=== PATIENT | female | born 2000 | race Hispanic/Latino ===

== ENCOUNTER 2019-10-30 06:30 | Observation (INO) | payer SELFPAY ==
[~2019-10-30] VITALS: Ht 157.5 cm; Wt 83.1 kg
[2019-10-30] MEDS ORDERED: SODIUM CHLORIDE 0.9% 1000ML 1,000 ML IV STA (06:33)
[2019-10-30] MEDS ORDERED: ONDANSETRON HCL INJ 2MG/ML 2ML 2 MG/ML VIAL IV ONE (06:33)
--- NOTE | 2019-10-30 06:44 | Emergency Department Note ---
History of Present Illnes History of Present Illness Chief Complaint: Abdominal Complaints History of Present Illness This is a 19 year old female arrived to the ED with RUQ pain for several days, has h/o gall stones. Chief Complaint Comment 19 Y/O FEMALE PT AAOX3 PRESENTS TO THE ER C/O RUQ ABD PAIN AND N/V ONSET AROUND 0300 THIS AM; REPORTS HX OF GALLSTONES; PT STATES SHE ATE MEATBALLS, HOT CHIPS AND ICE CREAM FOR DINNER; PT STATES SHE WAS AT [facility] LAST YEAR FOR SAME PROBLEMS BUT NONE OF THE HOSPITALS WOULD TAKE GALLBLADDER OUT; PT VOMITING IN TRIAGE; V/S/S; 20G IV CATH PLACED IN LT AC; BLOOD OBTAINED FOR ANALYSIS. Historian: Patient Arrival Mode: Car Onset (how long ago): day(s) Radiation: Reports back Severity: mild Duration (how long): day(s) Chronicity: recurrent Context: Reports recent illness Relieving factors: none Past Medical/Family History Physician Review I have reviewed the patient's past medical and family history. Any updates have been documented here. Past Medical History Recent Fever: No Clinical Suspicion of Infectio: No New/Unexplained Change in Ment: No Past Medical History: Asthma Past Surgical History: None Social History Smoking Cessation: Never Smoker Counseling Performed: No Review of Systems Review of Systems Constitutional: Reports no symptoms EENTM: Reports no symptoms Cardiovascular: Reports no symptoms Respiratory: Reports no symptoms Gastrointestinal: Reports as per HPI, Reports abdominal pain Genitourinary: Reports no symptoms Musculoskeletal: Reports no symptoms Integumentary: Reports no symptoms Neurological: Reports no symptoms Psychological: Reports no symptoms Endocrine: Reports no symptoms Hematological/Lymphatic: Reports no symptoms Physical Exam Related Data Allergies: Coded Allergies: No Known Allergies (Unverified , 10/30/19) Triage Vital Signs Vital Signs Date Time Temp Pulse Resp B/P (MAP) Pulse Ox O2 Delivery O2 Flow Rate FiO2 10/30/19 06:35 98.5 70 20 141/91 100 Room Air Vital signs reviewed: Yes Physical Exam CONSTITUTIONAL Constitutional: Present well-developed, Present well-nourished HENT HENT: Present normocephalic, Present atraumatic, Present oropharynx clear/moist, Present nose normal HENT L/R: Present left ext ear normal, Present right ext ear normal EYES Eyes: Reports PERRL, Reports conjunctivae normal NECK Neck: Present ROM normal PULMONARY Pulmonary: Present effort normal, Present breath sounds normal CARDIOVASCULAR Cardiovascular: Present regular rhythm, Present heart sounds normal, Present capillary refill normal, Present normal rate GASTROINTESTINAL Abdominal: Present soft, Present bowel sounds normal, Present tender, Present other (+aranda's sign ) GENITOURINARY Genitourinary: Present exam deferred SKIN Skin: Present warm, Present dry MUSCULOSKELETAL Musculoskeletal: Present ROM normal NEUROLOGICAL Neurological: Present alert, Present oriented x 3, Present no gross motor or sensory deficits PSYCHOLOGICAL Psychological: Present mood/affect normal, Present judgement normal Results Laboratory Lab results reviewed: Yes Laboratory comments Laboratory Tests Test 10/30/19 06:41 White Blood Count 15.02 x10e3/uL (4.8-10.8) Red Blood Count 4.84 x10e6/uL (3.6-5.1) Hemoglobin 14.0 g/dL (12.0-16.0) Hematocrit 42.5 % (34.2-44.1) Mean Corpuscular Volume 87.8 fL (81-99) Mean Corpuscular Hemoglobin 28.9 pg (28-32) Mean Corpuscular Hemoglobin Concent 32.9 g/dL (31-35) Red Cell Distribution Width 13.5 % (11.7-14.4) Platelet Count 376 x10e3/uL (140-360) Neutrophils (%) (Auto) 75.3 % (38.7-80.0) Lymphocytes (%) (Auto) 17.8 % (18.0-39.1) Monocytes (%) (Auto) 5.7 % (4.4-11.3) Eosinophils (%) (Auto) 0.4 % (0.0-6.0) Basophils (%) (Auto) 0.3 % (0.0-1.0) Neutrophils # (Auto) 11.3 (2.1-6.9) Lymphocytes # (Auto) 2.7 (1.0-3.2) Monocytes # (Auto) 0.9 (0.2-0.8) Eosinophils # (Auto) 0.1 (0.0-0.4) Basophils # (Auto) 0.1 (0.0-0.1) Absolute Immature Granulocyte (auto 0.07 x10e3/uL (0-0.1) Urine Color Yellow (YELLOW) Urine Clarity Clear (CLEAR) Urine pH 8.5 (5 - 7) Urine Specific [employer] 1.015 (1.010-1.025) Urine Protein Negative (NEGATIVE) Urine Glucose (UA) Negative (NEGATIVE) Urine Ketones 1+ (NEGATIVE) Urine Blood Trace (NEGATIVE) Urine Nitrite Negative (NEGATIVE) Urine Bilirubin Negative (NEGATIVE) Urine Urobilinogen 0.2 mg/dL (0.2 - 1) Urine Leukocyte Esterase Negative (NEGATIVE) Urine RBC 0-5 /HPF (0-5) Urine WBC 6-10 /HPF (0-5) Urine Epithelial Cells Rare /LPF (NONE) Urine Bacteria Rare /HPF (NONE) Sodium Level 137 mmol/L (136-145) Potassium Level 4.2 mmol/L (3.5-5.1) Chloride Level 105 mmol/L (98-107) Carbon Dioxide Level 17 mmol/L (22-29) Anion Gap 19.2 mmol/L (8-16) Blood Urea Nitrogen 8 mg/dL (7-26) Creatinine 0.75 mg/dL (0.57-1.11) Estimat Glomerular Filtration Rate > 60 ML/MIN (60-) BUN/Creatinine Ratio 11 (6-25) Glucose Level 165 mg/dL (74-118) Calcium Level 9.6 mg/dL (8.4-10.2) Total Bilirubin 0.2 mg/dL (0.2-1.2) Aspartate Amino Transf (AST/SGOT) 26 IU/L (5-34) Alanine Aminotransferase (ALT/SGPT) 28 IU/L (0-55) Alkaline Phosphatase 65 IU/L (40-150) Total Protein 8.5 g/dL (6.5-8.1) Albumin 4.7 g/dL (3.5-5.0) Globulin 3.8 g/dL (2.3-3.5) Albumin/Globulin Ratio 1.2 (0.8-2.0) Lipase 8 U/L (8-78) Human Chorionic Gonadotropin, Qual Negative (NEGATIVE) Imaging Imaging results reviewed: Yes Impressions IMPRESSION: There is mild inflammatory change in the liver immediately adjacent to the gallbladder. While this is indeterminate, it could be due to acute cholecystitis in the appropriate clinical setting. If further imaging evaluation is necessary, consider HIDA. The findings were discussed with Dr. Genao on 10/30/2019 at 8:34 AM. Signed by: Emmett Hernandez JR, MD on 10/30/2019 8:35 AM Assessment & Plan Medical Decision Making MDM 19 yo F arrived to the ED with RUQ Abdominal pain +Aranda's sign on exam. CT AP c/w acute abdulaziz Dr. Diana Escalante informed Assessment & Plan Final Impression: (1) Acute cholecystitis Depart Disposition: ADMITTED Last Vital Signs Date Time Temp Pulse Resp B/P (MAP) Pulse Ox O2 Delivery O2 Flow Rate FiO2 10/30/19 06:35 98.5 70 20 141/91 100 Room Air Medications in the ED Sodium Chloride 1,000 ml @ 0 mls/hr Q0M STAT IV ; Start 10/30/19 at 06:33; Stop 10/30/19 at 06:36; Status DC Ondansetron HCl 4 mg NOW STAT IV ; Start 10/30/19 at 06:33; Stop 10/30/19 at 06:34; Status UNV Morphine Sulfate 4 mg ONCE PRN IV SEVERE PAIN (7-10); Start 10/30/19 at 06:45; Stop 11/06/19 at 06:44; Status UNV KHADIJAH GENAO, DO Oct 30, 2019 06:44
[2019-10-30] MEDS ORDERED: MORPHINE SULFATE INJ 4 MG/ML INJ 1ML IV PRN (06:45)
[2019-10-30] MEDS ORDERED: ONDANSETRON HCL INJ 2MG/ML 2ML 2 MG/ML VIAL ONE (06:54)
[2019-10-30 07:02] LABS: BASOPHILS # (AUTO) 0.1 (0.0-0.1); BASOPHILS % 0.3 % (0.0-1.0); EOSINOPHILS # (AUTO) 0.1 (0.0-0.4); EOSINOPHILS % 0.4 % (0.0-6.0); HEMATOCRIT 42.5 % (34.2-44.1); LYMPHOCYTES # (AUTO) 2.7 (1.0-3.2); LYMPHOCYTES % 17.8 % (18.0-39.1); MEAN CORPUSCULAR HEMOGLOBIN 28.9 pg (28-32); MEAN CORPUSCULAR HGB CONC 32.9 g/dL (31-35); MEAN CORPUSCULAR VOLUME 87.8 fL (81-99); MONOCYTES # (AUTO) 0.9 (0.2-0.8); MONOCYTES % 5.7 % (4.4-11.3); NEUTROPHILS # (AUTO) 11.3 (2.1-6.9); NEUTROPHILS % 75.3 % (38.7-80.0); PLATELET COUNT 376 x10e3/uL (140-360); RED BLOOD COUNT 4.84 x10e6/uL (3.6-5.1); RED CELL DISTRIBUTION WIDTH 13.5 % (11.7-14.4)
--- NOTE | 2019-10-30 07:05 | NUR ---
Report to LELAND Sanford
[2019-10-30] MEDS ORDERED: KETOROLAC TROMETHAMINE 30 MG/ML VIAL IV ONE (07:12)
[2019-10-30 07:18] LABS: ALANINE AMINOTRANSFERASE 28 IU/L (0-55); ALBUMIN 4.7 g/dL (3.5-5.0); ALBUMIN/GLOBULIN RATIO 1.2 (0.8-2.0); ALKALINE PHOSPHATASE 65 IU/L (40-150); ANION GAP 19.2 mmol/L (8-16); BLOOD UREA NITROGEN 8 mg/dL (7-26); BUN/CREATININE RATIO 11 (6-25); CALCIUM 9.6 mg/dL (8.4-10.2); CARBON DIOXIDE 17 mmol/L (22-29); CHLORIDE 105 mmol/L (98-107); CREATININE, SERUM 0.75 mg/dL (0.57-1.11); EST GLOMERULAR FILTRATION RATE > 60 ML/MIN (60-); GLUCOSE 165 mg/dL (74-118); POTASSIUM 4.2 mmol/L (3.5-5.1); SODIUM 137 mmol/L (136-145)
[2019-10-30 07:31] LABS: LIPASE 8 U/L (8-78)
[2019-10-30] MEDS ORDERED: SODIUM CHLORIDE 0.9% 50ML 50 ML ONE (07:34)
[2019-10-30] MEDS ORDERED: IOPAMIDOL 370 MG/ML 200 ML INFUS..BTL INJ ONE (07:34)
[2019-10-30 08:33] LABS: BILIRUBIN,URINE NEGATIVE (NEGATIVE); CLARITY,URINE CLEAR (CLEAR); COLOR,URINE YELLOW (YELLOW); KETONES,URINE 1+ (NEGATIVE); LEUKOCYTE ESTERASE ,URINE NEGATIVE (NEGATIVE); NITRITE,URINE NEGATIVE (NEGATIVE); PROTEIN,URINE DIPSTICK NEGATIVE (NEGATIVE); URINE UROBILINOGEN 0.2 mg/dL (0.2 - 1)
--- NOTE | 2019-10-30 08:39 | Diagnostic Imaging Report ---
TECHNIQUE: CT of the abdomen and pelvis WITH intravenous contrast and WITHOUT oral contrast. Dose modulation, iterative reconstruction, and/or weight-based adjustment of the mA/kV was utilized to reduce the radiation dose to as low as reasonably achievable. INDICATION: ^Y ^abd pain ^20191030 ^0751. COMPARISON: None. FINDINGS: LOWER THORAX: Unremarkable. HEPATOBILIARY: No focal hepatic lesions. There is mild hyperenhancement in the pericholecystic gallbladder. No biliary ductal dilatation. SPLEEN: No splenomegaly. PANCREAS: No focal masses or ductal dilatation. ADRENALS: No adrenal nodules. KIDNEYS/URETERS: No hydronephrosis, stones, or masses. PELVIC ORGANS/BLADDER: A peripherally enhancing structure in the right ovary measures 2 cm, has a clinical data margin, and is most consistent with a corpus luteum. This is almost benign, and no routine follow-up imaging is recommended. PERITONEUM/RETROPERITONEUM: No free air or fluid. LYMPH NODES: No lymphadenopathy. VESSELS: Unremarkable. GI TRACT: No distention or wall thickening. 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 IMPRESSION: There is mild inflammatory change in the liver immediately adjacent to the gallbladder. While this is indeterminate, it could be due to acute cholecystitis in the appropriate clinical setting. If further imaging evaluation is necessary, consider HIDA. The findings were discussed with Dr. Hough on 10/30/2019 at 8:34 AM. Signed by: Emmett Hernandez JR, MD on 10/30/2019 8:35 AM
--- NOTE | 2019-10-30 08:43 | Diagnostic Imaging Report ---
TECHNIQUE: Grayscale ultrasound of the right abdomen. INDICATION: ^ruq pain ^Y. COMPARISON: CT from earlier the same day. FINDINGS: MIDLINE VASCULATURE: The visualized inferior vena cava is patent. Portal vein is patent. The maximum visualized aortic diameter is 1.4 cm. LIVER: Increased liver echogenicity with small foci of sparing around the gallbladder. Smooth liver contour. No focal lesions. The main portal vein measures 0.9 cm. BILIARY: Gallbladder: Multiple stones layering the gallbladder. No gallbladder wall thickening, pericholecystic fluid, or distention. Negative sonographic Aranda sign. Common bile duct measures 0.5 cm, within normal limits. No intrahepatic biliary ductal dilatation. PANCREAS: Incompletely visualized due to overlying bowel gas. The partially visualized pancreatic neck is normal. PERITONEUM: No free fluid. RIGHT KIDNEY: Normal in size. No hydronephrosis. No sonographically evident solid mass lesion. IMPRESSION: 1. There are stones in the gallbladder without gallbladder wall thickening, gallbladder distention, or pericholecystic fluid. Given the mild pericholecystic liver enhancement on the prior CT, while the findings are nonspecific, acute cholecystitis is in the differential. Consider HIDA for further evaluation. 2. Diffuse fatty infiltration of the liver. Signed by: Emmett Hernandez JR, MD on 10/30/2019 8:40 AM
[2019-10-30 08:45] LABS: BACTERIA,URINE RARE /HPF; EPITHELIAL CELLS,URINE RARE /LPF; RBC,URINE 0-5 /HPF (0-5)
[2019-10-30] MEDS ORDERED: MORPHINE SULFATE 2 MG/ML SYR 1ML IV PRN (09:00)
[2019-10-30 11:34] VITALS: BP 114/84
--- NOTE | 2019-10-30 13:15 | NUR ---
off unit for colonoscopy Addendum: 10/30/19 at 1902 by Kamilah Merida LVN entered on wrong pt.Pat lvn
[2019-10-30 13:44] VITALS: BP 114/84
[2019-10-30 15:22] VITALS: BP 120/54
[2019-10-30] MEDS: SODIUM CHLORIDE 0.9% 1000ML 1,000 ML IV SCH (16:38)
--- NOTE | 2019-10-30 19:00 | NUR ---
RECEIVED PATIENT IN BEDSIDE SHIFT REPORT. PATIENT RESTING IN BED AT THIS TIME. A&OX3. IV RUNNING TO L AC20G, NS @ 125ML/HR, ASYMPTOMATIC. NO PAIN OR NAUSEA REPORTED AT THIS TIME. NO S&S OF DISTRESS NOTED. BED LOCKED IN LOWEST POSITION, SIDE RAILS UPX2, CALL LIGHT IN REACH.
--- NOTE | 2019-10-30 19:02 | NUR ---
walking rounds complete, report given to oncoming nurse.
[2019-10-30 20:00] VITALS: BP 124/65
[2019-10-30 20:33] VITALS: BP 124/65
[2019-10-31] VITALS (8 sets, daily range): BP systolic 107–135; BP diastolic 55–90
[2019-10-31] MEDS: CEFTRIAXONE SOD 1 GM/NS 50 ML 50 ML IV SCH ×2 (04:37→22:05)
--- NOTE | 2019-10-31 07:36 | NUR ---
PATIENT SITTING UP IN BED TALKING ON THE PHONE, NO DISTRESS NOTED. IV FLUID INFUSING ORDERED, REMAINS NPO FOR A PROCEDURE. BED IN LOWER POSITION, CALL LIGHT AT REACH.
[2019-10-31] MEDS: SODIUM CHLORIDE 0.9% 1000ML 1,000 ML IV SCH ×2 (10:02)
--- NOTE | 2019-10-31 11:19 | NUR ---
PATIENT OFF UNIT TO OR.
[2019-10-31] MEDS ORDERED: LIDOCAINE HCL 2% LOCAL INJ 5 ML SDV VIAL INJ ONE (11:46)
[2019-10-31] MEDS ORDERED: ATROPINE SULFATE 1 MG/ML VIAL ONE (11:46)
[2019-10-31] MEDS ORDERED: DEXAMETHASONE SOD PHOS INJ 4 MG/ML VIAL ONE (11:46)
[2019-10-31] MEDS ORDERED: PROPOFOL IV EMULSION 10 MG/ML 20 ML VIAL ONE (11:46)
[2019-10-31] MEDS ORDERED: KETOROLAC TROMETHAMINE 30 MG/ML VIAL ONE (11:46)
[2019-10-31] MEDS ORDERED: ROCURONIUM BROMIDE 10 MG/ML 5ML VIAL IV ONE (11:46)
[2019-10-31] MEDS ORDERED: SEVOFLURANE INHAL SOLN 250 ML PEN BTL ONE (11:46)
[2019-10-31] MEDS ORDERED: ONDANSETRON HCL INJ 2MG/ML 2ML 2 MG/ML VIAL ONE (11:46)
[2019-10-31] MEDS ORDERED: NEOSTIGMINE 1 MG/ML 10ML VIAL ONE (11:46)
[2019-10-31] MEDS ORDERED: BUPIVACAINE 0.25% 30ML SDV INJ ONE (11:56)
[2019-10-31] MEDS ORDERED: HYDROCODONE/APAP 7.5MG-325MG 1 EA TAB PO PRN (13:15)
[2019-10-31] MEDS ORDERED: FENTANYL CITRATE/PF 100MCG/2 ML INJ ONE ×2 (13:19→13:30)
[2019-10-31] MEDS ORDERED: MIDAZOLAM HCL 2 MG/2 ML VIAL ONE (13:19)
--- NOTE | 2019-10-31 13:29 | Operative Report ---
DATE OF PROCEDURE: 10/31/2019 SURGEON: Sami Escalante MD PREOPERATIVE DIAGNOSES: Cholecystitis and cholelithiasis. POSTOPERATIVE DIAGNOSES: Cholecystitis and cholelithiasis. OPERATION PERFORMED: Laparoscopic cholecystectomy. REGIONAL COORDINATOR: IMELDA Jane. ANESTHESIA: General. COMPLICATIONS: None. ESTIMATED BLOOD LOSS: Minimal. DESCRIPTION OF PROCEDURE: With the patient lying in bed in the supine position under good general endotracheal anesthesia, the abdomen was prepped with Betadine solution and draped in the usual manner. A Veress needle was introduced into the umbilicus and pneumoperitoneum was established without any difficulty. An 11 mm trocar was placed into the umbilicus and a 10 mm video laparoscope was placed into the intra-abdominal cavity. Under direct vision, three 5 mm trocars were placed in the right subcostal region. Video laparoscopy at this point revealed a gallbladder that contained multiple stones and was partially intrahepatic on the top part. The rest of the abdominal exploration appeared to be within normal limits. The peritoneum overlying the neck of the gallbladder was then opened and the cystic duct was identified. The cystic duct was followed to its junction with the common duct. The cystic duct was then circumferentially dissected away from the common duct, doubly clipped and divided. The cystic artery was similarly doubly clipped and divided. The gallbladder was then slowly and carefully taken off the liver bed using the cautery scissors and perfect hemostasis was ascertained. The gallbladder was placed in a pouch and removed through the umbilicus without any difficulty. Video laparoscopy was then again carried out. The liver bed was found to be perfectly dry. All the excess fluid was aspirated. The pneumoperitoneum was evacuated and all the trocars were removed under direct vision. The midline fascia at the umbilicus was then closed with a [id number] of 0 Vicryl. All layers were infiltrated on the way out with solution of 0.25% Marcaine. Subcutaneous tissue was approximated with 3-0 Vicryl and the skin was closed with subcuticular 5-0 Vicryl. Benzoin, Steri-Strips, and Band-Aids were applied. The sponge, lap, and needle count was correct. The patient tolerated the procedure well and returned to the recovery room in stable condition. VernMD MARCE Ramirez/ORLIN /[id number]
[2019-10-31] MEDS ORDERED: MORPHINE SULFATE INJ 4 MG/ML INJ 1ML ONE (14:14)
--- NOTE | 2019-10-31 14:31 | NUR ---
PATIENT BACK TO UNIT FROM OR. REPORT RECEIVED FROM PACU NURSE. PATIENT HAD A LAPAROSCOPIC CHOLECYSTECTOMY. 4 TROCAR SITES TO ABDOMEN WITH BAND AID DRY AND INTACT. PATIENT STATED THAT SHE IS JUST SORE. REQUESTED AND RECEIVED ICE WATER. BED IN LOWER POSITION, CALL LIGHT AT REACH.
--- NOTE | 2019-10-31 15:00 | NUR ---
PATIENT ASSISTED TO THE RESTROOM AND BACK TO BED. VOIDED LARGE AMOUNT OF CLEAR YELLOW URINE. IN BED WITH CALL LIGHT AT REACH.
[2019-10-31] MEDS: MORPHINE SULFATE INJ 4 MG/ML INJ 1ML IV PRN (15:30)
[2019-10-31] MEDS: ONDANSETRON HCL INJ 2MG/ML 2ML 2 MG/ML VIAL IV PRN (15:30)
--- NOTE | 2019-10-31 20:07 | NUR ---
RECEIVED PT IN BED AOX3 ,DENIES PAIN PATIENT HAD A LAP MUSTAPHA TODAY 4 TROCAR SITES TO ABDOMEN WITH BAND AID DRY AND INTACT.CONTINUE TO MONITOR
[2019-11-01] VITALS: BP 104/65
[2019-11-01] MEDS: SODIUM CHLORIDE 0.9% 1000ML 1,000 ML IV SCH (01:55)
[2019-11-01 04:45] VITALS: BP 110/52
--- NOTE | 2019-11-01 06:23 | NUR ---
PT RESTED DURING THE NIGHT ,DENIES PAIN ,CALL LIGHT WITH IN REACH ,CONTINUE TO MONITOR
--- NOTE | 2019-11-01 06:46 | NUR ---
BEDSIDE REPORT GIVEN TO THE ON COMING NURSE
--- NOTE | 2019-11-01 07:26 | NUR ---
PATIENT C/O PAIN AND WAS MEDICATED ORDERED. WILL CONTINUE TO MONITOR.
[2019-11-01 07:30] VITALS: BP 127/80
[2019-11-01] MEDS: ONDANSETRON HCL INJ 2MG/ML 2ML 2 MG/ML VIAL IV PRN (08:50)
[2019-11-01] MEDS: MORPHINE SULFATE INJ 4 MG/ML INJ 1ML IV PRN (08:50)
[2019-11-01 09:15] VITALS: BP 127/80
[2019-11-01 09:49] VITALS: BP 127/80
[2019-11-01 10:14] LABS: HEMOGLOBIN 11.7 g/dL (12.0-16.0); MEAN CORPUSCULAR HEMOGLOBIN 29.3 pg (28-32); MEAN CORPUSCULAR HGB CONC 32.5 g/dL (31-35); MEAN CORPUSCULAR VOLUME 90.2 fL (81-99); PLATELET COUNT 295 x10e3/uL (140-360); RED BLOOD COUNT 3.99 x10e6/uL (3.6-5.1); RED CELL DISTRIBUTION WIDTH 13.4 % (11.7-14.4)
[2019-11-01 10:48] LABS: LYMPHOCYTES % (MANUAL) 29 % (19-48); MONOCYTES % (MANUAL) 6 % (3.4-9.0); NEUTROPHILS % (MANUAL) 65 % (40-74); PLATELET ESTIMATE ADEQUATE; PLATELET MORPHOLOGY COMMENT NORMAL; RBC MORPHOLOGY COMMENT NORMAL
--- NOTE | 2019-11-01 11:33 | NUR ---
PATIENT ASSISTED WITH AMBULATION IN ROOM. BACK IN BED WITH CALL LIGHT AT REACH.
[2019-11-01 13:13] VITALS: BP 116/71
--- NOTE | 2019-11-01 14:05 | Discharge Summary ---
HISTORY: Ms. Malone is a 19-year-old female, who denies any prior medical history except for knowing that she had a gallstone for the last two years, came to the emergency room complaining of right upper quadrant pain, nausea, and vomiting. She was found to have cholelithiasis and cholecystitis. She underwent laparoscopic cholecystectomy yesterday. PHYSICAL EXAMINATION: GENERAL: Today, she is awake and alert. She wants to go home. VITAL SIGNS: Temperature is 99.2, blood pressure 127/80. HEART: Regular rate. LUNGS: Clear to auscultation. ABDOMEN: Distended with mild tenderness in the surgical incisions. LABORATORY DATA: On the blood work white count was 15.02 on the , hemoglobin is 14. COVID test came back negative. Potassium 4.3. Creatinine 0.75. A urine negative. A CAT scan show cholecystitis. DISCHARGE DIAGNOSES: 1. Acute cholecystitis. 2. Cholelithiasis. 3. Leukocytosis. PLAN: 1. The plan at the present time is, the patient is started on a diet. We are going to discontinue IV fluids. 2. We are awaiting for Surgeon to see her. They are going to recheck white blood cells. If she gets cleared by Surgery, she is going to be able to go home and follow up with Dr. Escalante as an outpatient. All this was discussed in detail with the patient. All questions were answered to satisfaction. MD CASPER Delgadillo/ORLIN /[id number]
[2019-11-01] MEDS ORDERED: KEFLEX500 MG PO (14:18)
--- NOTE | 2019-11-01 15:15 | NUR ---
SPOKE WITH MD REGARDING PAIN MEDICATION PRESCRIPTION. ORDER RECEIVED FOR PATIENT TO CALL THE OFFICE AND GIVE THE PHARMACY NUMBER.
--- NOTE | 2019-11-01 15:20 | NUR ---
PATIENT DISCHARGED HOME. DISCHARGE INSTRUCTION, PRESCRIPTION, AND FOLLOW UP GIVEN TO PATIENT, SHE VERBALIZED UNDERSTANDING. IV TO LEFT AC REMOVED WITH TIP INTACT. ALL PERSONAL ITEMS TAKEN WITH PATIENT. LEFT UNIT PER WHEEL CHAIR TO FRONT LOBBY IN STABLE CONDITION.
--- OUTSIDE RECORDS SUMMARY | 2019-11-04 15:06 | XMS REPORT | Continuity of Care Document ---
Author Author [facility] t Organization [facility] Address [address] [place] [address] Phone Unavailable Care Team Providers Care Sewer Cleaner Name Role Phone NO, PCP PCP Unavailable Blanca GENAO Attphyblanca Unavailable Payers Payer Name Policy Type Policy Number Effective Date Expiration Date S ource Problems Condition Name Condition Details Condition Category Status Onset Date Resolution Date Last Treatment Date Treating Clinician Comments Source Acute cholecystitis Problem Active [facility] Allergies, Adverse Reactions, Alerts Allergy Name Allergy Type Status Severity Reaction(s) Onset Date Inacti ve Date Treating Clinician Comments Source No Known Allergies DA Active U 2016-08-22 00:00:00 [facility] Social History Social Habit Start Date Stop Date Quantity Comments Source Sex Assigned At 2000 00:00:00 2000 00:00:00 Female [facility] Medications Ordered Medication Name Filled Medication Name Start Date Stop Da te Current Medication? Ordering Clinician Indication Dosage Frequency Signature (SIG) Comments Components Source Cephalexin Monohydrate (Keflex) 500 Mg CAPSULE Cephale celio Monohydrate (Keflex) 500 Mg CAPSULE Yes Three Times A Day [facility] Vital Signs Vital Name Observation Time Observation Value Comments Source Body Temperature 2019-11-01 13:13:00 98.5 [degF] [facility] Weight 2019-11-01 04:44:00 183.13 [lb_av] [facility] BMI (Body Mass Index) 2019-11-01 04:44:00 33.5 kg/m2 [facility] Procedures Procedure Date / Time Performed Performing Clinician Toño bennett Computed tomography of abdomen and pelvis with contrast 00:00:00 [facility] US Gallbladder 2019-10-30 00:00:00 [facility] Plan of Care Planned Activity Planned Date Details Comments Source Instructions Abdominal Pain - Adult [facility] Encounters Start Date/Time End Date/Time Encounter Type Admission Type Attendi RUST Care Department Encounter ID Source 2019-10-30 08:53:00 2019-11-01 15:15:00 Discharged Inpatient (obs) 1 KHADIJAH GENAO [facility] [id number] I [facility] Results Test Description Test Time Test Comments Results Result Comments Source Blood leukocytes automated count (number/volume) 2019-11-01 10:05:00 Test Item White Blood Count (test code = 6690-2) 13.33 4.8-10.8 [facility] erythrocytes automated count (number/volume)2019-11-01 10:05:00* Test Item Value Reference Range Interpretation Comments Red Blood Count (test code = 789-8) 3.99 3.6-5.1 [facility] hemoglobin measurement (moles/volume)2019-11-01 10:05:00* Test Item Value Reference Range Interpretation Comments Hemoglobin (test code = 84733-7) 11.7 12.0-16.0 [facility] LancasterAutomated blood hematocrit (volume fraction)2019-11-01 10:05:00* Test Item Value Reference Range Interpretation Comments Hematocrit (test code = 4544-3) 36.0 34.2-44.1 [facility] Lancaster[facility] erythrocyte mean corpuscular zfywrm5596-92-04 10:05:00* Test Item Value Reference Range Interpretation Comments Mean Corpuscular Volume (test code = 787-2) 90.2 81-99 [facility] LancasterAutom[facility] erythrocyte mean corpuscular hemoglobin (mass per erythrocyte)2019-11-01 10:05:00* Test Item Value Reference Range Interpretation Comments Mean Corpuscular Hemoglobin (test code = 785-6) 29.3 28-32 [facility] LancasterAutom[facility] erythrocyte mean corpuscular hemoglobin concentration measurement (mass/volume)2019-11-01 10:05:00* Test Item Value Reference Range Interpretation Comments Mean Corpuscular Hemoglobin Concent (test code = 786-4) 32.5 31-35 [facility] LancasterRDW JvyZr-Kje5566-60-24 10:05:00* Test Item Value Reference Range Interpretation Comments Red Cell Distribution Width (test code = 60723-3) 13.4 11.7 -14.4 [facility] LancasterAutom[facility] blood platelet count (count/volume)2019-11-01 10:05:00* Test Item Value Reference Range Interpretation Comments Platelet Count (test code = 777-3) 295 140-360 [facility] LancasterFluoroscopic procedure less than one hour deqidxht4887-57-67 10:05:00* Test Item Value Reference Range Interpretation Comments Differential Total Cells Counted (test code = Differcecilia tial Total Cells Counted) 100 [facility] blood neutrophils/100 leukocytes 2019-11-01 10:05:00* Test Item Value Reference Range Interpretation Comments Neutrophils % (Manual) (test code = 93896-2) 65 40-74 [facility] blood lymphocytes/100 leukocytes 2019-11-01 10:05:00* Test Item Value Reference Range Interpretation Comments Lymphocytes % (Manual) (test code = 737-7) 29 19-48 [facility] blood monocytes/100 leukocytes 2019-11-01 10:05:00* Test Item Value Reference Range Interpretation Comments Monocytes % (Manual) (test code = 744-3) 6 3.4-9.0 [facility] platelets count by estimate (number/volume)2019-11-01 10:05:00* Test Item Value Reference Range Interpretation Comments Platelet Estimate (test code = 89615-7) ADEQUATE [facility] LancasterPlatelet aspsanidkb1704-60-93 10:05:00* Test Item Value Reference Range Interpretation Comments Platelet Morphology Comment (test code = 51227-7) NORMAL [facility] LancasterRBC sxkhgyyrda1428-97-37 10:05:00* Test Item Value Reference Range Interpretation Comments Red Cell Morphology Comment (test code = 6742-1) NORMAL [facility] LancasterFluoroscopic procedure less than one hour acsfbccg7680-82-05 09:16:00* Test Item Value Reference Range Interpretation Comments Coronavirus (PCR) (test code = Coronavirus (PCR)) NOT DETECTED NOTD ETECTED SARS-CoV-2 PCRHologic Aptima SARS-CoV-2 assay is a nucleic amplification test in tended for the qualitative detection of RNA from SARS-CoV-2 from nasopharyngeal (SPD MANAGER) specimens. It is used under Emergency Use Authorization (EUA) by FDA.A posi tive result is indicative of the presence of SARS-CoV-2 RNA. Clinical correlatio n with patient history and other diagnostic information is necessary to determin e patient infection status.A negative (Not Detected) result does not preclude SA RS-CoV-2 infection. Clinical Correlation with patient history and other diagnost ic information should be used in patient management decisions.Invalid: Unable to generate a valid result on this specimen. Please submit a new specimen for repr at testing oc clinically indicated.Tesing performed by:[facility] Laboratory Services[address] [place] [address] [id number], Mik lubin MD, PhDCrescent Medical Center LancasterUS [id number] 08:36:00 [facility] [address] [place] [address] Patient Name: ROME BARRON MR #: [id number] : 2000 Age/Sex: 19/F Req #: [id number] Adm Physician: Ordered by: KHADIJAH GENAO DO Report #: [id number] Location: ER Room/Bed: Procedure: [id number] US/US GAL LBLADDER Exam Date: Exam Time: REPORT STATUS: Signed TECHNIQUE: Grayscale ultrasou nd of the right abdomen. INDICATION: ruq pain Y. COMPARISON: CT from earlier the same day. FINDINGS: MIDLINE VASCULATURE: The visu alized inferior vena cava is patent. Portal vein is patent. The maximum visual ized aortic diameter is 1.4 cm. LIVER: Increased liver echogenicity with sm all foci of sparing around the gallbladder. Smooth liver contour. No focal les ions. The main portal vein measures 0.9 cm. BILIARY: Gallbladder: Multi ple stones layering the gallbladder. No gallbladder wall thickening, perichole cystic fluid, or distention. Negative sonographic Aranda sign. Common bile d uct measures 0.5 cm, within normal limits. No intrahepatic biliary ductal dila tation. PANCREAS: Incompletely visualized due to overlying bowel gas. The p artially visualized pancreatic neck is normal. PERITONEUM: No free fluid. RIGHT KIDNEY: Normal in size. No hydronephrosis. No sonographically eviden t solid mass lesion. IMPRESSION: 1. There are stones in the gall bladder without gallbladder wall thickening, gallbladder distention, or perich olecystic fluid. Given the mild pericholecystic liver enhancement on the prior CT, while the findings are nonspecific, acute cholecystitis is in the differe ntial. Consider HIDA for further evaluation. 2. Diffuse fatty infiltrati on of the liver. Signed by: Emmett Hernandez JR, MD on 10/30/2019 8:40 AM Dictated By: EMMETT HERNANDEZ MD 0840 COPY TO: JANAE GENAO DO CT ABDOMEN/PELVIS [id number] 08:23:00 [place] [address] Patient Name: ROME BARRON MR #: [id number] : 2000 Age/Sex: 19/F Req #: [id number] Adm Physician: Ordered by: KHADIJAH GENAO DO Report #: [id number] Location: ER Room/Bed: Procedure: CT/CT ABD OMEN/PELVIS W Exam Date: 10/30/19 Exam Time: 075 REPORT STATUS: Signed TECHNIQUE: C T of the abdomen and pelvis WITH intravenous contrast and WITHOUT oral contras t. Dose modulation, iterative reconstruction, and/or weight-based adjustment o f the mA/kV was utilized to reduce the radiation dose to as low as reasonably achievable. INDICATION: Y abd pain 20191030. COMPARI SON: None. FINDINGS: LOWER THORAX: Unremarkable. HEPATOBILIARY : No focal hepatic lesions. There is mild hyperenhancement in the pericholecys tic gallbladder. No biliary ductal dilatation. SPLEEN: No splenomegaly. PANC REAS: No focal masses or ductal dilatation. ADRENALS: No adrenal nodules. KIDNEYS/URETERS: No hydronephrosis, stones, or masses. PELVIC ORGANS/BLADDER: A peripherally enhancing structure in the right ovary measures 2 cm, has a cl inical data margin, and is most consistent with a corpus luteum. This is almos t benign, and no routine follow-up imaging is recommended. PERITONEUM/RETROPER ITONEUM: No free air or fluid. LYMPH NODES: No lymphadenopathy. VESSELS: Unr emarkable. GI TRACT: No distention or wall thickening. 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 IMPRESSION: There is mild inflammatory change in the liver immediately adjacent to the gallbladder. While this is indeterminate, it could be due to acute cholecysti tis in the appropriate clinical setting. If further imaging evaluation is nece ssary, consider HIDA. The findings were discussed with Dr. Genao on 2019 at 8:34 AM. Signed by: Emmett Hernandez JR, MD on 10/30/2019 8:35 AM Dictated By: EMMETT HERNANDEZ MD 0835 COPY TO: JNAAE GENAO DO Automated blood segmented neutrophil count as percentage of total qvxzkrqykx2096-99-97 06:41:00* Test Item Value Reference Range Interpretation Comments Neutrophils (%) (Auto) (test code = 27873-1) 75.3 38.7-80.0 [facility] LancasterAutomated blood lymphocyte count as percentage ot total kwpsftuplt5781-70-78 06:41:00* Test Item Value Reference Range Interpretation Comments Lymphocytes (%) (Auto) (test code = 736-9) 17.8 18.0-39.1 [facility] LancasterAutomated blood monocyte count as percentage of total gzcfqoyfng8199-45-70 06:41:00* Test Item Value Reference Range Interpretation Comments Monocytes (%) (Auto) (test code = 5905-5) 5.7 4.4-11.3 [facility] LancasterAutomated blood eosinophil count as percentage of total zaueavsulv5789-03-13 06:41:00* Test Item Value Reference Range Interpretation Comments Eosinophils (%) (Auto) (test code = 713-8) 0.4 0.0-6.0 [facility] LancasterAutomated blood basophil count as percentage of total tbmyjdcbbn1325-30-99 06:41:00* Test Item Value Reference Range Interpretation Comments Basophils (%) (Auto) (test code = 706-2) 0.3 0.0-1.0 [facility] LancasterFluoroscopic procedure less than one hour swsitybv2436-13-74 06:41:00* Test Item Value Reference Range Interpretation Comments IM GRANULOCYTES % (test code = IM GRANULOCYTES %) 0.5 0.0- 1.0 [facility] LancasterAutomated blood neutrophil count 2019-10-30 06:41:00* Test Item Value Reference Range Interpretation Comments Neutrophils # (Auto) (test code = 751-8) 11.3 2.1-6.9 [facility] LancasterBlood lymphocytes count (number/volume) 2019-10-30 06:41:00* Test Item Value Reference Range Interpretation Comments Lymphocytes # (Auto) (test code = 36837-8) 2.7 1.0-3.2 [facility] LancasterBlood monocytes automated count (number/volume)2019-10-30 06:41:00* Test Item Value Reference Range Interpretation Comments Monocytes # (Auto) (test code = 742-7) 0.9 0.2-0.8 [facility] LancasterAutomated blood eosinophil count 2019-10-30 06:41:00* Test Item Value Reference Range Interpretation Comments Eosinophils # (Auto) (test code = 711-2) 0.1 0.0-0.4 [facility] LancasterAutomated blood basophil count (count/volume)2019-10-30 06:41:00* Test Item Value Reference Range Interpretation Comments Basophils # (Auto) (test code = 704-7) 0.1 0.0-0.1 [facility] LancasterFluoroscopic procedure less than one hour vtxvknck6660-21-65 06:41:00* Test Item Value Reference Range Interpretation Comments Absolute Immature Granulocyte (auto (aydin t code = Absolute Immature Granulocyte (auto) 0.07 0-0.1 [facility] LancasterUrine color lkalezlytlmvm7053-51-97 06:41:00* Test Item Value Reference Range Interpretation Comments Urine Color (test code = 5778-6) YELLOW YELLOW [facility] LancasterUrine oshokxa7962-99-58 06:41:00* Test Item Value Reference Range Interpretation Comments Urine Clarity (test code = 52948-8) CLEAR [facility]AR [facility] of Urine by Test strip 2019-10-30 06:41:00* Test Item Value Reference Range Interpretation Comments Urine Specific [place] (test code = 5811-5) 1.015 1.010-1.02 5 [facility] LancasterUrine pH measurement by automated test esdci2558-95-78 06:41:00* Test Item Value Reference Range Interpretation Comments Urine pH (test code = 61547-4) 8.5 5-7 [facility] LancasterUrine leukocyte esterase detection by xnymsafz2290-57-41 06:41:00* Test Item Value Reference Range Interpretation Comments Urine Leukocyte Esterase (test code = 5799-2) NEGATIVE NEGATIVE [facility] LancasterUrine nitrite gcnkvzeod5888-88-45 06:41:00* Test Item Value Reference Range Interpretation Comments Urine Nitrite (test code = 36265-5) NEGATIVE NEGATIVE [facility] LancasterUrine protein measurement by test strip (mass/volume)2019-10-30 06:41:00* Test Item Value Reference Range Interpretation Comments Urine Protein (test code = 5804-0) NEGATIVE NEGATIVE [facility] LancasterUrine glucose rjmyhwscv3380-80-99 06:41:00* Test Item Value Reference Range Interpretation Comments Urine Glucose (UA) (test code = 2349-9) NEGATIVE NEGATIVE [facility] LancasterUrine ketones detection by automated test qdgro2213-54-31 06:41:00* Test Item Value Reference Range Interpretation Comments Urine Ketones (test code = 73705-1) 1+ NEGATIVE [facility] LancasterUrine urobilinogen measurement by test strip (mass/volume)2019-10-30 06:41:00* Test Item Value Reference Range Interpretation Comments Urine Urobilinogen (test code = 07383-3) 0.2 0.2-1 [facility] LancasterUrine total bilirubin measurement (mass/volume)2019-10-30 06:41:00* Test Item Value Reference Range Interpretation Comments Urine Bilirubin (test code = 1978-6) NEGATIVE NEGATIVE [facility] LancasterUrine erythrocytes bzopmzrow8762-04-89 06:41:00* Test Item Value Reference Range Interpretation Comments Urine Blood (test code = 97324-8) TRACE NEGATIVE [facility] LancasterAutomated urine sediment leukocyte count by microscopy (number/high power field)2019-10-30 06:41:00* Test Item Value Reference Range Interpretation Comments Urine WBC (test code = 5821-4) 6-10 0-5 [facility] LancasterErythrocytes detection in urine sediment by light haiccwqwby4240-51-98 06:41:00* Test Item Value Reference Range Interpretation Comments Urine RBC (test code = 16125-9) 0-5 0-5 [facility] LancasterBacteria detection in urine sediment by light bcysgrearq8268-01-06 06:41:00* Test Item Value Reference Range Interpretation Comments Urine Bacteria (test code = 12258-0) RARE NONE [facility] LancasterEpithelial cells detection in urine sediment by light nqkvhjoetc9560-21-08 06:41:00* Test Item Value Reference Range Interpretation Comments Urine Epithelial Cells (test code = 07049-8) RARE NONE [facility] Hospitalerum or plasma sodium measurement (moles/volume)2019-10-30 06:41:00* Test Item Value Reference Range Interpretation Comments Sodium Level (test code = 2951-2) 137 136-145 [facility] Hospitaler[facility] or plasma potassium measurement (moles/volume)2019-10-30 06:41:00* Test Item Value Reference Range Interpretation Comments Potassium Level (test code = 2823-3) 4.2 3.5-5.1 [facility]er[facility] or plasma chloride measurement (moles/volume)2019-10-30 06:41:00* Test Item Value Reference Range Interpretation Comments Chloride Level (test code = 2075-0) 105 98-107 [facility] Hospitalerum or plasma carbon dioxide, total measurement (moles/volume)2019-10-30 06:41:00* Test Item Value Reference Range Interpretation Comments Carbon Dioxide Level (test code = 2028-9) 17 22-29 [facility] Hospitalerum or plasma anion aea0767-15-83 06:41:00* Test Item Value Reference Range Interpretation Comments Anion Gap (test code = 30706-1) 19.2 8-16 [facility]er[facility] or plasma urea nitrogen measurement (mass/volume)2019-10-30 06:41:00* Test Item Value Reference Range Interpretation Comments Blood Urea Nitrogen (test code = 3094-0) 8 7-26 [facility]erum or plasma creatinine measurement (mass/volume)2019-10-30 06:41:00* Test Item Value Reference Range Interpretation Comments Creatinine (test code = 2160-0) 0.75 0.57-1.11 [facility] Hospitaler[facility] or plasma urea nitrogen/creatinine mass mtwkf9204-74-47 06:41:00* Test Item Value Reference Range Interpretation Comments BUN/Creatinine Ratio (test code = 3097-3) 11 6-25 [facility] LancasterEstimated glomerular filtration rate (GFR) xhthbtzzyqbpy7982-70-11 06:41:00* Test Item Value Reference Range Interpretation Comments Estimat Glomerular Filtration Rate (test code = 515484995) > 60 >60 Ranges were taken from the National Kidney Disease Education Program and the [facility] literature.Reference ranges:60 or greater: Wrrsqe76-04 ( for 3 consecutive months): Chronic kidney disease 15 or less: Kidney failureCrescent Medical Center LancasterGlucose hcjgnhpawhr4062-43-40 06:41:00* Test Item Value Reference Range Interpretation Comments Glucose Level (test code = MXA9556) 165 74-118 [facility] Hospitalerum or plasma calcium measurement (mass/volume)2019-10-30 06:41:00* Test Item Value Reference Range Interpretation Comments Calcium Level (test code = 46289-0) 9.6 8.4-10.2 [facility] Hospitalerum or plasma total bilirubin measurement (mass/volume)2019-10-30 06:41:00* Test Item Value Reference Range Interpretation Comments Total Bilirubin (test code = 1975-2) 0.2 0.2-1.2 [facility] LancasterFluoroscopic procedure less than one hour zhvdwhxk7109-91-92 06:41:00* Test Item Value Reference Range Interpretation Comments Aspartate Amino Transf (AST/SGOT) (test code = Aspartate Amino Transf (AST/SGOT)) 26 5-34 [facility] Hospitalerum or plasma alanine aminotransferase measurement (enzymatic activity/volume)2019-10-30 06:41:00* Test Item Value Reference Range Interpretation Comments Alanine Aminotransferase (ALT/SGPT) (test code = 1742-6) 28 0-55 [facility] Hospitalerum or plasma protein measurement (mass/volume)2019-10-30 06:41:00* Test Item Value Reference Range Interpretation Comments Total Protein (test code = 2885-2) 8.5 6.5-8.1 [facility] Hospitaler[facility] or plasma albumin measurement (mass/volume)2019-10-30 06:41:00* Test Item Value Reference Range Interpretation Comments Albumin (test code = 1751-7) 4.7 3.5-5.0 [facility] LancasterPlasma globulin measurement (mass/volume) 2019-10-30 06:41:00* Test Item Value Reference Range Interpretation Comments Globulin (test code = 52673-6) 3.8 2.3-3.5 [facility] Hospitaler[facility] or plasma albumin/globulin mass siima4191-71-36 06:41:00* Test Item Value Reference Range Interpretation Comments Albumin/Globulin Ratio (test code = 1759-0) 1.2 0.8-2.0 [facility] Hospitalerum or plasma alkaline phosphatase measurement (enzymatic activity/volume)2019-10-30 06:41:00* Test Item Value Reference Range Interpretation Comments Alkaline Phosphatase (test code = 6768-6) 65 40-150 [facility] Hospitalerum or plasma lipase measurement (enzymatic activity/volume)2019-10-30 06:41:00* Test Item Value Reference Range Interpretation Comments Lipase (test code = 3040-3) 8 8-78 [facility] Hospitalerum or plasma choriogonadotropin ( test) iurkzuhrg0578-28-05 06:41:00* Test Item Value Reference Range Interpretation Comments Human Chorionic Gonadotropin, Qual (test code = 2118-8) NEGATIVE NEGATIVE [facility]
--- OUTSIDE RECORDS SUMMARY | 2019-11-04 15:06 | XMS REPORT | Continuity of Care Document ---
Author Author [facility] t Organization [facility] Address [address] [place] [address] Phone Unavailable Care Team Providers Care Clarity Developer Name Role Phone NO, PCP PCP Unavailable Blanca GENAO Attphyblanca Unavailable Payers Payer Name Policy Type Policy Number Effective Date Expiration Date S ource Problems Condition Name Condition Details Condition Category Status Onset Date Resolution Date Last Treatment Date Treating Clinician Comments Source Acute cholecystitis Problem Active [facility] Allergies, Adverse Reactions, Alerts Allergy Name Allergy Type Status Severity Reaction(s) Onset Date Inacti ve Date Treating Clinician Comments Source No Known Allergies DA Active U 2016-08-22 00:00:00 [facility] Social History Social Habit Start Date Stop Date Quantity Comments Source Sex Assigned At 2000 00:00:00 2000 00:00:00 Female [facility] Medications Ordered Medication Name Filled Medication Name Start Date Stop Da te Current Medication? Ordering Clinician Indication Dosage Frequency Signature (SIG) Comments Components Source Cephalexin Monohydrate (Keflex) 500 Mg CAPSULE Cephale celio Monohydrate (Keflex) 500 Mg CAPSULE Yes Three Times A Day [facility] Vital Signs Vital Name Observation Time Observation Value Comments Source Body Temperature 2019-11-01 13:13:00 98.5 [degF] [facility] Weight 2019-11-01 04:44:00 183.13 [lb_av] [facility] BMI (Body Mass Index) 2019-11-01 04:44:00 33.5 kg/m2 [facility] Procedures Procedure Date / Time Performed Performing Clinician Toño bennett Computed tomography of abdomen and pelvis with contrast 00:00:00 [facility] US Gallbladder 2019-10-30 00:00:00 [facility] Plan of Care Planned Activity Planned Date Details Comments Source Instructions Abdominal Pain - Adult [facility] Encounters Start Date/Time End Date/Time Encounter Type Admission Type [email or web address] Care Department Encounter ID Source 2019-10-30 08:53:00 2019-11-01 15:15:00 Discharged Inpatient (obs) 1 KHADIJAH GENAO [facility] [id number] I [facility] Results Test Description Test Time Test Comments Results Result Comments Source Blood leukocytes automated count (number/volume) 2019-11-01 10:05:00 Test Item White Blood Count (test code = 6690-2) 13.33 4.8-10.8 [facility] erythrocytes automated count (number/volume)2019-11-01 10:05:00* Test Item Value Reference Range Interpretation Comments Red Blood Count (test code = 789-8) 3.99 3.6-5.1 [facility]lake[facility] hemoglobin measurement (moles/volume)2019-11-01 10:05:00* Test Item Value Reference Range Interpretation Comments Hemoglobin (test code = 67975-3) 11.7 12.0-16.0 [facility]lakeAutomated blood hematocrit (volume fraction)2019-11-01 10:05:00* Test Item Value Reference Range Interpretation Comments Hematocrit (test code = 4544-3) 36.0 34.2-44.1 [facility]lakeAutomated erythrocyte mean corpuscular dkcgpd2187-50-69 10:05:00* Test Item Value Reference Range Interpretation Comments Mean Corpuscular Volume (test code = 787-2) 90.2 81-99 [facility]lakeAutomated erythrocyte mean corpuscular hemoglobin (mass per erythrocyte)2019-11-01 10:05:00* Test Item Value Reference Range Interpretation Comments Mean Corpuscular Hemoglobin (test code = 785-6) 29.3 28-32 [facility]lakeAutomated erythrocyte mean corpuscular hemoglobin concentration measurement (mass/volume)2019-11-01 10:05:00* Test Item Value Reference Range Interpretation Comments Mean Corpuscular Hemoglobin Concent (test code = 786-4) 32.5 31-35 [facility] SouthlakeRDW ZxlBw-Lpb3786-10-24 10:05:00* Test Item Value Reference Range Interpretation Comments Red Cell Distribution Width (test code = 75586-0) 13.4 11.7 -14.4 [facility]lakeAutomated blood platelet count (count/volume)2019-11-01 10:05:00* Test Item Value Reference Range Interpretation Comments Platelet Count (test code = 777-3) 295 140-360 [facility] SouthlakeFluoroscopic procedure less than one hour frwyuucx4955-24-72 10:05:00* Test Item Value Reference Range Interpretation Comments Differential Total Cells Counted (test code = Differcecilia tial Total Cells Counted) 100 [facility] blood neutrophils/100 leukocytes 2019-11-01 10:05:00* Test Item Value Reference Range Interpretation Comments Neutrophils % (Manual) (test code = 47184-4) 65 40-74 [facility] blood lymphocytes/100 leukocytes 2019-11-01 10:05:00* Test Item Value Reference Range Interpretation Comments Lymphocytes % (Manual) (test code = 737-7) 29 19-48 [facility] blood monocytes/100 leukocytes 2019-11-01 10:05:00* Test Item Value Reference Range Interpretation Comments Monocytes % (Manual) (test code = 744-3) 6 3.4-9.0 [facility]lakeBlood platelets count by estimate (number/volume)2019-11-01 10:05:00* Test Item Value Reference Range Interpretation Comments Platelet Estimate (test code = 42214-5) ADEQUATE [facility] SouthlakePlatelet kwoavxadzh1282-05-99 10:05:00* Test Item Value Reference Range Interpretation Comments Platelet Morphology Comment (test code = 77607-9) NORMAL [facility] SouthlakeRBC rjpfzdulwi6445-38-68 10:05:00* Test Item Value Reference Range Interpretation Comments Red Cell Morphology Comment (test code = 6742-1) NORMAL [facility] SouthlakeFluoroscopic procedure less than one hour yiouiyho5234-14-87 09:16:00* Test Item Value Reference Range Interpretation Comments Coronavirus (PCR) (test code = Coronavirus (PCR)) NOT DETECTED NOTD ETECTED SARS-CoV-2 PCRHologic Aptima SARS-CoV-2 assay is a nucleic amplification test in tended for the qualitative detection of RNA from SARS-CoV-2 from nasopharyngeal (RECORD LABEL INTERNSHIP) specimens. It is used under Emergency Use [...] repr at testing oc clinically indicated.Tesing performed by:[facility] Services[address] [place] [address] [id number], Mik lubin MD, PhDTexas Health [facility] SouthlakeUS [id number] 08:36:00 [facility] [address] [place] [address] Patient Name: ROME BARRON MR #: [id number] : 2000 Age/Sex: 19/F Req #: [id number] Adm Physician: Ordered by: KHADIJAH GENAO DO Report #: [id number] Location: ER Room/Bed: Procedure: [id number] US/US GAL LBLADDER Exam Date: Exam Time: [...] COPY TO: JANAE GENAO DO CT ABDOMEN/PELVIS [id number] 08:23:00 [place] [address] Patient Name: ROME BARRON MR #: [id number] : 2000 Age/Sex: 19/F Req #: [id number] Adm Physician: Ordered by: KHADIJAH GENAO DO [...] By: EMMETT HERNANDEZ MD 0835 COPY TO: JANAE GENAO DO Automated blood segmented neutrophil count as percentage of total jakjpmzvhb4249-00-68 06:41:00* Test Item Value Reference Range Interpretation Comments Neutrophils (%) (Auto) (test code = 72923-7) 75.3 38.7-80.0 [facility]lakeAutomated blood lymphocyte count as percentage ot total mnzgsdkecs0505-89-29 06:41:00* Test Item Value Reference Range Interpretation Comments Lymphocytes (%) (Auto) (test code = 736-9) 17.8 18.0-39.1 [facility] SouthlakeAutomated blood monocyte count as percentage of total cnjfrsvgmj7943-96-56 06:41:00* Test Item Value Reference Range Interpretation Comments Monocytes (%) (Auto) (test code = 5905-5) 5.7 4.4-11.3 [facility]lakeAutomated blood eosinophil count as percentage of total njkuxtqmej4894-32-26 06:41:00* Test Item Value Reference Range Interpretation Comments Eosinophils (%) (Auto) (test code = 713-8) 0.4 0.0-6.0 [facility] SouthlakeAutomated blood basophil count as percentage of total sribgpwzvh3071-03-19 06:41:00* Test Item Value Reference Range Interpretation Comments Basophils (%) (Auto) (test code = 706-2) 0.3 0.0-1.0 [facility] SouthlakeFluoroscopic procedure less than one hour jortyduy8372-86-45 06:41:00* Test Item Value Reference Range Interpretation Comments IM GRANULOCYTES % (test code = IM GRANULOCYTES %) 0.5 0.0- 1.0 [facility] SouthlakeAutomated blood neutrophil count 2019-10-30 06:41:00* Test Item Value Reference Range Interpretation Comments Neutrophils # (Auto) (test code = 751-8) 11.3 2.1-6.9 [facility]lakeBlood lymphocytes count (number/volume) 2019-10-30 06:41:00* Test Item Value Reference Range Interpretation Comments Lymphocytes # (Auto) (test code = 15659-0) 2.7 1.0-3.2 [facility]lakeBlood monocytes automated count (number/volume)2019-10-30 06:41:00* Test Item Value Reference Range Interpretation Comments Monocytes # (Auto) (test code = 742-7) 0.9 0.2-0.8 [facility] SouthlakeAutomated blood eosinophil count 2019-10-30 06:41:00* Test Item Value Reference Range Interpretation Comments Eosinophils # (Auto) (test code = 711-2) 0.1 0.0-0.4 [facility] SouthlakeAutomated blood basophil count (count/volume)2019-10-30 06:41:00* Test Item Value Reference Range Interpretation Comments Basophils # (Auto) (test code = 704-7) 0.1 0.0-0.1 [facility] SouthlakeFluoroscopic procedure less than one hour coopsubg9786-37-09 06:41:00* Test Item Value Reference Range Interpretation Comments Absolute Immature Granulocyte (auto (aydin t code = Absolute Immature Granulocyte (auto) 0.07 0-0.1 [facility] SouthlakeUrine color twmieucaxzpek5081-34-98 06:41:00* Test Item Value Reference Range Interpretation Comments Urine Color (test code = 5778-6) YELLOW YELLOW [facility] SouthlakeUrine cpyyvnf2483-84-56 06:41:00* Test Item Value Reference Range Interpretation Comments Urine Clarity (test code = 21934-0) CLEAR CLEAR [facility] Hospitalpecific gravity of Urine by Test strip 2019-10-30 06:41:00* Test Item Value Reference Range Interpretation Comments Urine Specific [place] (test code = 5811-5) 1.015 1.010-1.02 5 [facility] SouthlakeUrine pH measurement by automated test hcfrg4059-96-81 06:41:00* Test Item Value Reference Range Interpretation Comments Urine pH (test code = 80826-3) 8.5 5-7 [facility] SouthlakeUrine leukocyte esterase detection by qfxfecwh0246-04-80 06:41:00* Test Item Value Reference Range Interpretation Comments Urine Leukocyte Esterase (test code = 5799-2) NEGATIVE NEGATIVE [facility] SouthlakeUrine nitrite gmcztomdm3970-28-31 06:41:00* Test Item Value Reference Range Interpretation Comments Urine Nitrite (test code = 87305-1) NEGATIVE NEGATIVE [facility] SouthlakeUrine protein measurement by test strip (mass/volume)2019-10-30 06:41:00* Test Item Value Reference Range Interpretation Comments Urine Protein (test code = 5804-0) NEGATIVE NEGATIVE [facility] SouthlakeUrine glucose hzmiyfnsn6948-49-04 06:41:00* Test Item Value Reference Range Interpretation Comments Urine Glucose (UA) (test code = 2349-9) NEGATIVE NEGATIVE [facility] SouthlakeUrine ketones detection by automated test cpcue9992-00-81 06:41:00* Test Item Value Reference Range Interpretation Comments Urine Ketones (test code = 31832-6) 1+ NEGATIVE [facility] SouthlakeUrine urobilinogen measurement by test strip (mass/volume)2019-10-30 06:41:00* Test Item Value Reference Range Interpretation Comments Urine Urobilinogen (test code = 03877-3) 0.2 0.2-1 [facility]lakeUrine total bilirubin measurement (mass/volume)2019-10-30 06:41:00* Test Item Value Reference Range Interpretation Comments Urine Bilirubin (test code = 1978-6) NEGATIVE NEGATIVE [facility] SouthlakeUrine erythrocytes gzobzgogg1100-35-13 06:41:00* Test Item Value Reference Range Interpretation Comments Urine Blood (test code = 55478-0) TRACE NEGATIVE [facility] SouthlakeAutomated urine sediment leukocyte count by microscopy (number/high power field)2019-10-30 06:41:00* Test Item Value Reference Range Interpretation Comments Urine WBC (test code = 5821-4) 6-10 0-5 [facility] SouthlakeErythrocytes detection in urine sediment by light rgmgnpupij2747-00-68 06:41:00* Test Item Value Reference Range Interpretation Comments Urine RBC (test code = 66571-5) 0-5 0-5 [facility] SouthlakeBacteria detection in urine sediment by light qrkflaurph1607-40-65 06:41:00* Test Item Value Reference Range Interpretation Comments Urine Bacteria (test code = 12272-1) RARE NONE [facility] SouthlakeEpithelial cells detection in urine sediment by light rlnlexhyon1278-42-59 06:41:00* Test Item Value Reference Range Interpretation Comments Urine Epithelial Cells (test code = 66630-2) RARE NONE [facility] Hospitalerum or plasma sodium measurement (moles/volume)2019-10-30 06:41:00* Test Item Value Reference Range Interpretation Comments Sodium Level (test code = 2951-2) 137 136-145 [facility] Hospitalerum or plasma potassium measurement (moles/volume)2019-10-30 06:41:00* Test Item Value Reference Range Interpretation Comments Potassium Level (test code = 2823-3) 4.2 3.5-5.1 [facility]er[facility] or plasma chloride measurement (moles/volume)2019-10-30 06:41:00* Test Item Value Reference Range Interpretation Comments Chloride Level (test code = 2075-0) 105 98-107 [facility] Hospitalerum or plasma carbon dioxide, total measurement (moles/volume)2019-10-30 06:41:00* Test Item Value Reference Range Interpretation Comments Carbon Dioxide Level (test code = 2028-9) 17 22-29 [facility]erum or plasma anion ogt8797-81-28 06:41:00* Test Item Value Reference Range Interpretation Comments Anion Gap (test code = 80794-1) 19.2 8-16 [facility]er[facility] plasma urea nitrogen measurement (mass/volume)2019-10-30 06:41:00* Test Item Value Reference Range Interpretation Comments Blood Urea Nitrogen (test code = 3094-0) 8 7-26 [facility]erum or plasma creatinine measurement (mass/volume)2019-10-30 06:41:00* Test Item Value Reference Range Interpretation Comments Creatinine (test code = 2160-0) 0.75 0.57-1.11 [facility]er[facility] or plasma urea nitrogen/creatinine mass cbwbj9883-78-99 06:41:00* Test Item Value Reference Range Interpretation Comments BUN/Creatinine Ratio (test code = 3097-3) 11 6-25 [facility] SouthlakeEstimated glomerular filtration rate (GFR) xogcmjbprpspu5518-44-81 06:41:00* Test Item Value Reference Range Interpretation Comments Estimat Glomerular Filtration Rate (test code = 108674053) > 60 >60 Ranges were taken from the National Kidney Disease Education Program and the [place] Kid[facility] Foundation literature.Reference ranges:60 or greater: Lizqmi13-40 ( for 3 consecutive months): Chronic kidney disease 15 or less: Kidney failureTexas Health Harris Methodist Hospital SouthlakeGlucose bdgomxnvvox9779-75-93 06:41:00* Test Item Value Reference Range Interpretation Comments Glucose Level (test code = MJQ4370) 165 74-118 [facility]erum or plasma calcium measurement (mass/volume)2019-10-30 06:41:00* Test Item Value Reference Range Interpretation Comments Calcium Level (test code = 56243-5) 9.6 8.4-10.2 [facility]er[facility] or plasma total bilirubin measurement (mass/volume)2019-10-30 06:41:00* Test Item Value Reference Range Interpretation Comments Total Bilirubin (test code = 1975-2) 0.2 0.2-1.2 [facility] SouthlakeFluoroscopic procedure less than one hour cqpgfotk9095-51-35 06:41:00* Test Item Value Reference Range Interpretation Comments Aspartate Amino Transf (AST/SGOT) (test code = Aspartate Amino Transf (AST/SGOT)) 26 5-34 [facility] Hospitalerum or plasma alanine aminotransferase measurement (enzymatic activity/volume)2019-10-30 06:41:00* Test Item Value Reference Range Interpretation Comments Alanine Aminotransferase (ALT/SGPT) (test code = 1742-6) 28 0-55 [facility]er[facility] or plasma protein measurement (mass/volume)2019-10-30 06:41:00* Test Item Value Reference Range Interpretation Comments Total Protein (test code = 2885-2) 8.5 6.5-8.1 [facility]er[facility] or plasma albumin measurement (mass/volume)2019-10-30 06:41:00* Test Item Value Reference Range Interpretation Comments Albumin (test code = 1751-7) 4.7 3.5-5.0 [facility] SouthlakePlasma globulin measurement (mass/volume) 2019-10-30 06:41:00* Test Item Value Reference Range Interpretation Comments Globulin (test code = 69035-1) 3.8 2.3-3.5 [facility]er[facility] or plasma albumin/globulin mass wxgba3549-18-47 06:41:00* Test Item Value Reference Range Interpretation Comments Albumin/Globulin Ratio (test code = 1759-0) 1.2 0.8-2.0 [facility]er[facility] or plasma alkaline phosphatase measurement (enzymatic activity/volume)2019-10-30 06:41:00* Test Item Value Reference Range Interpretation Comments Alkaline Phosphatase (test code = 6768-6) 65 40-150 [facility]er[facility] or plasma lipase measurement (enzymatic activity/volume)2019-10-30 06:41:00* Test Item Value Reference Range Interpretation Comments Lipase (test code = 3040-3) 8 8-78 [facility] Hospitalerum or plasma choriogonadotropin ( test) akdvtehfm4188-49-33 06:41:00* Test Item Value Reference Range Interpretation Comments Human Chorionic Gonadotropin, Qual (test code = 2118-8) NEGATIVE NEGATIVE [facility]
== END 2019-11-01 15:15 | disposition home or self-care (01) ==
LOC: ER 07:41 → ERHOLD 08:53 → MED/SURG3 10:07
PROVIDERS: ADMIT Internal Medicine; ATTEND Internal Medicine
DX: K80.12 Calculus of gallbladder with acute and chronic cholecystitis without obstruction (principal); Z11.59 Encounter for screening for other viral diseases
CPT/HCPCS: 36415 ×2; 47562; 74177; 76705; 80053; 81001; 83690; 84702; 85007; 85025; 85027; 88304; 99284; G0378 ×3; J0461; J0696; J1100; J1885 ×2; J2001; J2250; J2270 ×3; J2405 ×3; J2704; J2710; J3010; J7030 ×3; Q9967; U0002

== ENCOUNTER 2020-07-30 21:25 | Emergency (ER) | payer SELFPAY ==
[~2020-07-30] VITALS: Ht 157.5 cm; Wt 83.0 kg
[~2020-07-30 21:25] MED LIST: KEFLEX500 MG PO
[2020-07-30] MEDS ORDERED: ONDANSETRON HCL INJ 2MG/ML 2ML 2 MG/ML VIAL IV STA (22:04)
[2020-07-30] MEDS ORDERED: SODIUM CHLORIDE 0.9% 1000ML 1,000 ML ONE (22:14)
[2020-07-30] MEDS ORDERED: ONDANSETRON HCL INJ 2MG/ML 2ML 2 MG/ML VIAL ONE (22:14)
[2020-07-30] MEDS ORDERED: SODIUM CHLORIDE 0.9% 1000ML 1,000 ML IV ONE (22:15)
[2020-07-30 22:16] LABS: BASOPHILS # (AUTO) 0.1 (0.0-0.1); BASOPHILS % 0.5 % (0.0-1.0); EOSINOPHILS # (AUTO) 0.3 (0.0-0.4); EOSINOPHILS % 1.7 % (0.0-6.0); HEMATOCRIT 39.9 % (34.2-44.1); HEMOGLOBIN 13.4 g/dL (12.0-16.0); LYMPHOCYTES # (AUTO) 2.6 (1.0-3.2); LYMPHOCYTES % 15.8 % (18.0-39.1); MEAN CORPUSCULAR HEMOGLOBIN 29.5 pg (28-32); MEAN CORPUSCULAR HGB CONC 33.6 g/dL (31-35); MEAN CORPUSCULAR VOLUME 87.9 fL (81-99); MONOCYTES # (AUTO) 1.1 (0.2-0.8); MONOCYTES % 6.7 % (4.4-11.3); NEUTROPHILS # (AUTO) 12.1 (2.1-6.9); NEUTROPHILS % 74.6 % (38.7-80.0); PLATELET COUNT 361 x10e3/uL (140-360); RED BLOOD COUNT 4.54 x10e6/uL (3.6-5.1); RED CELL DISTRIBUTION WIDTH 13.3 % (11.7-14.4)
[2020-07-30 22:32] LABS: ALBUMIN 3.9 g/dL (3.5-5.0); ANION GAP 16.3 mmol/L (8-16); CALCIUM 8.7 mg/dL (8.4-10.2); CREATININE, SERUM 0.71 mg/dL (0.57-1.11); POTASSIUM 3.3 mmol/L (3.5-5.1)
[2020-07-30 22:33] LABS: AMYLASE 58 U/L (25-125); LIPASE 10 U/L (8-78)
[2020-07-30 23:15] LABS: CLARITY,URINE CLEAR (CLEAR); COLOR,URINE YELLOW (YELLOW); EPITHELIAL CELLS,URINE RARE /LPF; KETONES,URINE TRACE (NEGATIVE); LEUKOCYTE ESTERASE ,URINE NEGATIVE (NEGATIVE); MUCUS,URINE FEW (RARE); NITRITE,URINE NEGATIVE (NEGATIVE); PROTEIN,URINE DIPSTICK NEGATIVE (NEGATIVE); RBC,URINE 0-5 /HPF (0-5); URINE UROBILINOGEN 0.2 mg/dL (0.2 - 1); WBC,URINE (MAN) 0-5 /HPF (0-5)
[2020-07-30] MEDS ORDERED: SODIUM CHLORIDE 0.9% 50ML 50 ML ONE (23:48)
[2020-07-30] MEDS ORDERED: IOPAMIDOL 370 MG/ML 200 ML INFUS..BTL INJ ONE (23:48)
[2020-07-31] MEDS ORDERED: FLAGYL500 MG PO (01:07)
[2020-07-31] MEDS ORDERED: CIPRO500 MG PO (01:07)
[2020-07-31] MEDS ORDERED: ULTRAM50 MG PO (01:07)
[2020-07-31] MEDS ORDERED: ONDANSETRON ODT4 MG PO (01:07)
[2020-07-31] MEDS ORDERED: SODIUM CHLORIDE 0.9% 1000ML 1,000 ML IV ONE (01:15)
[2020-07-31] MEDS ORDERED: PROMETHAZINE HCL (IM) 25 MG/ML VIAL IM ONE ×2 (01:15→01:20)
== END 2020-07-31 02:02 | disposition home or self-care (01) ==
LOC: ER 22:12
DX: R10.84 Generalized abdominal pain (principal); R11.2 Nausea with vomiting, unspecified; K52.9 Noninfective gastroenteritis and colitis, unspecified; J45.909 Unspecified asthma, uncomplicated
CPT/HCPCS: 36415; 74177; 80053; 81001; 81025; 82150; 83690; 85025; 99284; C9113; J2405; J2550; J7030 ×2; Q9967